=== PATIENT | female | born 2000 | race Caucasian/White ===

== ENCOUNTER 2024-12-12 13:48 | Outpatient (AMB) | payer BC, SELFPAY ==
--- NOTE | 2024-12-12 13:53 | PD.RESCLINIC ---
Vital Signs 12/12/24 14:02 Height 1.57 m Height Method Stated Weight 81.817 kg Weight Measurement Method Standing Scale BMI 33.0 BP 117/78 Blood Pressure Source Automatic Cuff Blood Pressure Location Right Upper Arm Position Sitting Respiration 17 Pulse 74 Pulse Source Monitor Temp 98.2 F Temp Source Temporal Artery Scan Pulse Oximetry (%) 97 Oxygen Delivery Method Room Air Allergies/Meds Allergies & Medications Allergies No Known Allergies Allergy (Verified 12/12/24 14:03) Medication Reconciliation famotidine 20 mg tablet 20 mg PO QDAY PRN acid reflux 2 weeks #14 tabs 12/12/24 [Rx] tranexamic acid 650 mg tablet 650 mg PO TID First five days of menstruation 5 days #15 tabs 12/12/24 [Rx] MA Intake Visit Data Collection New Patient or Established: New Patient (never been to [facility]) Seen by Clinical Staff ONLY (RN/MA): No Reason for Visit:: ESTABLISH CARE Pain Present Currently: No Pain scale:: 0 Pain Scale Used: Gomez-Geno/Numerical Child Day Care Teacher Required: No PCP or OBGYN visit in last 3 months: No Hx Now: No Date of Last Menstrual Period: 11/26/24 Do You Feel Safe at Home: Yes Authorities Contacted: N/A Smoking Status Smoking Status: Never smoker Immunization / Flu Flu Vaccine in the Last 12 Months: Yes Flu Vaccine Exclusion Criteria: Already Received Past Medical History Social History SMOKING STATUS: Smoking status: Never smoker HOUSING: Housing: [facility] Patient [facility] Questionaires PHQ-9 PHQ-2 Over the last 2 weeks, how often have you been bothered by any of the following problems? 1. Little interest or pleasure in doing things: not at all 2. Feeling down, depressed, or hopeless: not at all Total score: 0 PHQ-9 3. Trouble falling or staying asleep, or sleeping too much: Not at all 4. Feeling tired or having little energy: Not at all 5. Poor appetite or overeating: Not at all 6. Feeling bad about yourself - or that you are a failure or have let yourself or your family down: Not at all 7. Trouble concentrating on things, such as reading the newspaper or watching television: Not at all 8. Moving or speaking so slowly that other people could have noticed? - Or the opposite - being so fidgety or restless that you have been moving around a lot more than usual: not at all 9. Thoughts that you would be better off or of hurting yourself in some way: Not at all Total score: 0 If you checked off any problems, how difficult have these problems made it for you to do your work, take care of things at home, or get along with other people?: not difficult at all Source: Developed by Drs. Nathanael Shaikh, Angela Cohen, Papi Vigil and colleagues, with an educational noa from [employer]. Depression screen completed yes Social History Living Situation History Marital Status: Lives With: Family Housing: House Tobacco History Smoking Status: Never smoker Domestic Abuse History Do You Feel Safe at Home: Yes Review of Systems Report any current symptoms Only answer those that you have currently: Past Medical History Past Medical History Have you ever been diagnosed with any of the following: History of Present Illness HPI Narrative This patient is a 24-year-old female with no significant past medical history who is new to our [facility] clinic presented with chief complaint of irregular and heavy menstrual period from last 6 months. She reported that she had regular menstrual cycle in July 2024 lasting for 7 days soaking around 5 pads on heavy cycle days associated with dyspareunia and pelvic pain. She noticed her menstrual cycle became irregular in August lasting for 18 days and heaviest in the midcycle associated with worsening heaviness in pelvis and pain mainly in lower pelvis. She has been for last 6 years and they have been planning to conceive this year but her menstrual cycle got irregular. Of note, she reported that she had an in 2021 as they were not planning to conceive during that timeframe. Due to her irregular menstrual period they are only able to perform sexual intercourse once or twice a month since July 2024. Patient [facility] to get evaluated however they did basic lab work including CBC and thyroid functions which were normal and patient was only given iron medications with multivitamins. She stated that her menstrual cycle was heaviest in October and November lasting for 20 days. She did not seek any medical attention or take any medication during this timeframe. Her last menstrual period stopped on December 03, 2024. Since then, she has noticed some mild lower pelvic pain however denied dyspareunia. She endorsed some dizziness and lightheadedness. She has been having intentional weight loss with exercise and diet. She performs push-ups and treadmill at least 5 days a week. Patient denies any significant history of oral contraceptive intake, use of injection contraceptives or IUDs. She is currently not taking any medication. Denies dysuria or burning. Patient use pads only and denies usage of tampons. PMH: Nonsignificant PSH: Appendectomy in childhood Allergies: Allergic to dust SH: Denies smoking tobacco or marijuana. Drinks alcohol socially. No history of illicit drug use. FH: History of uterine cancer in aunt who . Her sister had 1 miscarriage. Patient was informed that she would need investigations including basic lab work CBC, CMP, iron panel with ferritin, B12, thyroid functions, beta-hCG, anti-m?llerian hormone, hormone test including FSH and LH along with transabdominal pelvic ultrasound to evaluate for uterine or ovarian pathology. Patient was given TIGHTENING MACHINE OPERATOR referral to Dr. Martinez for further evaluation along with lab work after 2 weeks per discussion with TIGHTENING MACHINE OPERATOR. Differentials include menometrorrhagia related to hormonal imbalance related to weight changes, endometriosis, fibroids, ovarian cyst, iron deficiency anemia, thyroid abnormalities Patient was given prescription for tranexamic acid 650 mg 3 times daily during first 5 days of menstrual cycle if menstrual cycle start within 2 weeks of visit with TIGHTENING MACHINE OPERATOR. She was also given prescription for famotidine 20 mg as needed for acid reflux. At this time, no OCP was prescribed until lab results are seen. Patient was advised to follow-up with TIGHTENING MACHINE OPERATOR within 2 weeks with lab results. Patient was agreeable to the plan. Follow-up in 2 weeks. Review of Systems Review of Systems Systems Reviewed: All systems reviewed, normal except as documented Objective/Exam Narrative Physical exam: GENERAL APPEARANCE: AxOx4, generally well-appearing female in no acute distress. HEENT: NC, AT. MMM. EOMI, clear conjunctiva, oropharynx clear. NECK: Supple without lymphadenopathy. No stiffness or restricted ROM. HEART: regular rate and regular rhythm, normal S1/S2, no m/r/g LUNGS: CTAB, moving air well. No crackles or wheezes are heard. ABDOMEN: Soft, Epigastric and lower pelvic tenderness, nondistended with good bowel sounds heard. BACK: No CVAT, no obvious deformity. EXTREMITIES: Without cyanosis, clubbing or edema. NEUROLOGICAL: Grossly nonfocal. Alert and oriented, moving all 4 extremities. CN not formally tested but appear grossly intact. Observed to ambulate with normal gait. Skin: Warm and dry without any rash. Assessment & Plan Diagnosis / Problem List (1) Menometrorrhagia: Status: Acute Assessment & Plan: #Menometrorrhagia Differentials include menometrorrhagia related to hormonal imbalance related to weight changes, endometriosis, fibroids, ovarian cyst, iron deficiency anemia, thyroid abnormalities ? Patient is new to our care presented with irregular and heavy menstrual blood for last 6 months. Menstrual cycle lasts 18 to 20 days heaviest in midcycle associated with dyspareunia and pain in pelvis. She is not taking any OCPs or any other medications. Endorsed lightheadedness and dizziness. Endorsed intentional weight loss with diet and exercise. No hirsutism reported. Patient is sexually active with her . Perform sexual intercourse once or twice a month. Intends to plan once menstrual cycle is regular. History of in 2021. Her last menstrual period was on December 03, 2024. Plan ? Prescription given for tranexamic acid 650 mg 3 times daily for first 5 days of menstrual cycle ? Basic lab including CBC, CMP, iron panel with ferritin, B12, A1c, thyroid function, beta-hCG, FSH, LH, anti-m?llerian hormone ? Imaging including transabdominal pelvic ultrasound to evaluate for uterine or ovarian pathology ? Referral given to TIGHTENING MACHINE OPERATOR for further evaluation after 2 weeks with lab results ? Famotidine 20 mg given for acid reflux as needed ? Follow-up in 2 weeks Patient was seen and discussed with attending physician, Dr.Wat[place] Dr. Svetlana MD, PGY 2 Orders: Orders Ambulatory Hemoglobin A1C Today N92.1 - Excessive and frequent menstruation with irregular cycle Thyroid Stimulating Hormone Today Vitamin B12 Today N92.1 - Excessive and frequent menstruation with irregular cycle Iron Panel Today N92.1 - Excessive and frequent menstruation with irregular cycle Urinalysis Today N92.1 - Excessive and frequent menstruation with irregular cycle CBC Today N92.1 - Excessive and frequent menstruation with irregular cycle Comprehensive Metabolic Panel Today N92.1 - Excessive and frequent menstruation with irregular cycle HCG Qualitative,Urine Today N92.1 - Excessive and frequent menstruation with irregular cycle US pelvic complete Today N92.1 - Excessive and frequent menstruation with irregular cycle Follicle Stimulating Hormone Today N92.1 - Excessive and frequent menstruation with irregular cycle Luteinizing Hormone* Today N92.1 - Excessive and frequent menstruation with irregular cycle Ferritin Today N92.1 - Excessive and frequent menstruation with irregular cycle Referrals TIGHTENING MACHINE OPERATOR N92.1 - Excessive and frequent menstruation with irregular cycle Office Procedures [facility] Level of Care Nursing/Assessment Patient Status: Initial/New Patient Nursing Assessment/Reassessment: Medication Reconciliation, Update PMH in EMR and Vital Signs Coordination of Care: Complex Care and Chronic Disease 1-5, Consent,records obtained, informed consent, Education Simp Pt/Fam and Staff clarify orders New Patient Charge New Patient Point Assignment: [id number] New Patient Point Charge: IT SOFTWARE DEVELOPER Level 3 ([id number])
[2024-12-12 14:02] VITALS: BP 117/78; PULSE 74; RESP 17; TEMP 36.8; O2SAT 97; BMI 33.0
== END 2024-12-12 14:55 | disposition home or self-care (01) ==
LOC: HODAHC 13:48
PROVIDERS: PCP Student in an Organized Health Care Education/Training Program; Referring Provider Student in an Organized Health Care Education/Training Program; Supervising Provider Internal Medicine; Visit Provider Student in an Organized Health Care Education/Training Program
DX: N92.1 Excessive and frequent menstruation with irregular cycle (principal)
CPT/HCPCS: 99203; G0463

== ENCOUNTER 2024-12-26 13:13 | Outpatient (AMB) | payer BC, SELFPAY ==
[2024-12-26 13:44] VITALS: BP 137/85; PULSE 71; RESP 18; TEMP 36.2; O2SAT 98; BMI 33.2
--- NOTE | 2024-12-26 13:44 | GYNCLNT_ITS ---
Vital Signs 12/26/24 13:44 Height 1.57 m Height Method Stated Weight 81.817 kg Weight Measurement Method Standing Scale BMI 33.2 BP 137/85 H Blood Pressure Source Automatic Cuff Blood Pressure Location Left Upper Arm Position Sitting Respiration 18 Pulse 71 Pulse Source Monitor Temp 97.2 F Temp Source Oral Pulse Oximetry (%) 98 Oxygen Delivery Method Room Air Allergies/Home Meds Allergies & Medications Allergies No Known Allergies Allergy (Verified 12/26/24 13:50) Medication Reconciliation tranexamic acid 650 mg tablet 650 mg PO TID First five days of menstruation 5 days #15 tabs 12/12/24 [Rx Confirmed 12/26/24] medroxyprogesterone 10 mg tablet (Provera) 10 mg PO QDAY 24 days #24 tabs 12/26/24 [Rx] Intake Visit Data Collection New Patient or Established: Established Patient (seen at [facility] within 3 years) Reason for Visit:: REFERRAL FROM [facility] Seen by Clinical Staff ONLY (RN/MA): No Electric Motor Repairman Required: No Do You Feel Safe at Home: Yes Authorities Contacted: N/A PCP or OBGYN visit in last 3 months: Yes Date of Last PCP or OBGYN visit: 12/12/24 Hx Now: Yes Are you currently on any form of Control: No Pain Present Currently: No Pain Scale Used: Gomez-Lora/Numerical Pain scale:: 0 Smoking Status Smoking Status: Never smoker Event Host history Event Host History Menstrual regularity: irregular Flow: heavy Monthly: Yes How many days does period last: 5 Age at menarche: 10 Menopausal: No Currently sexually active: Yes Questionnaires Covid-19 Vaccine Questionnaire Has patient been vacinated for Covid-19 Have you been vacinated for Covid-19: Yes PHQ-9 PHQ-2 Over the last 2 weeks, how often have you been bothered by any of the following problems? 1. Little interest or pleasure in doing things: not at all 2. Feeling down, depressed, or hopeless: not at all Total score: 0 PHQ-9 3. Trouble falling or staying asleep, or sleeping too much: Not at all 4. Feeling tired or having little energy: Not at all 5. Poor appetite or overeating: Not at all 6. Feeling bad about yourself - or that you are a failure or have let yourself or your family down: Not at all 7. Trouble concentrating on things, such as reading the newspaper or watching television: Not at all 8. Moving or speaking so slowly that other people could have noticed? - Or the opposite - being so fidgety or restless that you have been moving around a lot more than usual: not at all 9. Thoughts that you would be better off or of hurting yourself in some way: Not at all Total score: 0 If you checked off any problems, how difficult have these problems made it for you to do your work, take care of things at home, or get along with other people?: not difficult at all Source: Developed by Drs. Nathanael Shaikh, Angela Cohen, Papi Vigil and colleagues, with an educational noa from [employer] Depression screen completed yes Social History Living Situation History Lives With: Family Housing: House Tobacco History Smoking Status: Never smoker Second Hand Smoke Exposure: No Alcohol History Alcohol Intake: Never Domestic Abuse History Do You Feel Safe at Home: Yes History of Present Illness HPI Narrative Janine Henry is a 24-year-old female presenting on referral from the [facility] Medicine [facility] for menorrhagia. She reports a 6-month history of heavy periods, which began in August 2024. Prior to July 2024, the patient had regular menstrual cycles lasting about 7 days, using approximately 5 pads on heavy days. However, starting in August, her periods became progressively heavier, with one episode lasting about 18 days. She is currently experiencing another heavy period, which began yesterday. The patient also complains of dyspareunia and pelvic pain. She describes a feeling of heaviness in her uterus. Janine has been for 6 years and is trying to conceive. She reports a miscarriage in 2021. Due to her irregular cycles, she is currently unable to track her ovulation. The patient and her had planned to start trying for this year, but her menstrual irregularities have interfered with their plans. The patient was prescribed tranexamic acid by a resident doctor to manage her heavy bleeding. She took one dose last night but reports that it has not been effective in stopping or significantly reducing her menstrual flow. She is also taking Provera for menstrual cycle regulation. Obstetric History: - GPAL: A1 L0 - history: Miscarriage in 2021, no further details provided ROS: Genitourinary: Positive for heavy menstrual bleeding, dyspareunia, and pelvic pain. Review of Systems Review of Systems Systems Reviewed: All systems reviewed, normal except as documented Exam General General Appearance: alert, in no apparent distress and healthy appearing Head Head exam: atraumatic Neck Neck exam: Present normal inspection and trachea midline Chest Chest inspection: Present normal inspection and symmetric chest wall rise External exam: Present normal external exam; Absent tenderness Neuro Neurological exam: Present oriented X3 Psych Psychiatric exam: Present normal affect and normal mood Office Procedures OB Clinic LOC & Office Proc's Nursing/Assessment Patient Status: Established Patient OB Clinic Nursing Assessment: Medication Reconciliation, Update PMH in EMR and Vital Signs OB Clinic Coordination of Care: Education Complex Pt/Fam, Consent,records obtained, informed consent, Lab and Imaging orders, Results/Orders obtained and Staff clarify orders Established Patient Charge Established Patient Point Assignment: 85 Established Patient Point Charge: EP Level 3 (80-115) Assessment & Plan Diagnosis / Problem List (1) Abnormal uterine and vaginal bleeding, unspecified: Status: Acute (2) Female infertility, unspecified: Status: Acute Plan Menorrhagia: - Regular menstrual cycles until July 2024, lasting about 7 days with 5 pads on heavy days. - From August 2024, cycles became progressively heavier, with an episode lasting 18 days. - Recent labs, including thyroid function tests and Anti-Mullerian Hormone (AMH), within normal limits. - Presentation suggests a functional problem rather than structural issue. Plan: - Discontinue tranexamic acid - Start Provera (medroxyprogesterone acetate) for menstrual cycle regulation - 24-day course - Repeat for 2 months - Educate patient: - Bleeding should stop within 2 days of starting Provera - Period expected after completing 24-day course - Order pelvic ultrasound to rule out structural abnormalities - Follow-up in 1 month to assess response to treatment - Instruct patient to call and return sooner if bleeding occurs while on Provera Infertility: - Trying to conceive for 6 years - History of miscarriage in 2021 - Recent irregular cycles making it difficult to track ovulation - AMH levels normal, indicating adequate ovarian reserve Plan: - After 2 months of menstrual cycle regulation with Provera: - Initiate ovulation monitoring using [id number] test kits - Provide patient with a calendar indicating when to start monitoring - If ovulating: No further treatment needed - If not ovulating: Consider treatment with Clomid (clomiphene citrate)
== END 2024-12-26 14:27 | disposition home or self-care (01) ==
LOC: HODSOBC 13:13
PROVIDERS: PCP Student in an Organized Health Care Education/Training Program; Referring Provider Student in an Organized Health Care Education/Training Program; Supervising Provider Obstetrics & Gynecology; Visit Provider Obstetrics & Gynecology
DX: N93.9 Abnormal uterine and vaginal bleeding, unspecified (principal); N97.9 Female infertility, unspecified
CPT/HCPCS: 99213; G0463

== ENCOUNTER → 2025-01-26 | Outpatient (CLI) | payer BC, SELFPAY ==
--- NOTE | 2025-01-26 10:45 | XR_ITS ---
Examination: Pelvic ultrasound, transabdominal, complete Technique: Transabdominal ultrasound of the pelvis performed using grayscale imaging Date and time of exam: 01/26/2025 1033 hours INDICATIONS: Irregular menses 7 months FINDINGS: Uterus 8.0 cm endometrial stripe 0.7 cm No uterine mass or intrauterine gestation Right ovary 4.1 cm arterial flow, 3.0 x 1.5 x 2.3 cm cyst with internal echoes Left ovary 2.9 cm arterial flow Attention impression: attention: Right ovarian probable hemorrhagic cyst 3.0 x 1.5 x 2.3 cm, recommend 3-6 month follow-up pelvic sonography
== END | disposition home or self-care (01) ==
PROVIDERS: PCP Student in an Organized Health Care Education/Training Program; Referring Provider Student in an Organized Health Care Education/Training Program; Visit Provider Student in an Organized Health Care Education/Training Program
DX: N83.202 Unspecified ovarian cyst, left side (principal)
CPT/HCPCS: 76856

== ENCOUNTER 2025-02-06 15:12 | Outpatient (AMB) | payer BC, SELFPAY ==
[2025-02-06 15:28] VITALS: BP 115/73; PULSE 73; RESP 17; TEMP 36.7; O2SAT 98; BMI 33.0
--- NOTE | 2025-02-06 15:28 | GYNCLNT_ITS ---
Vital Signs 02/06/25 15:28 Height 1.57 m Height Method Stated Weight 81.42 kg Weight Measurement Method Standing Scale BMI 33.0 BP 115/73 Blood Pressure Source Automatic Cuff Blood Pressure Location Right Upper Arm Position Sitting Respiration 17 Pulse 73 Pulse Source Monitor Temp 98.1 F Temp Source Temporal Artery Scan Pulse Oximetry (%) 98 Oxygen Delivery Method Room Air Allergies/Home Meds Allergies & Medications Allergies No Known Allergies Allergy (Verified 02/06/25 15:32) Intake Visit Data Collection New Patient or Established: Established Patient (seen at [facility] within 3 years) Reason for Visit:: US RESULTS/FOLLOW UP Seen by Clinical Staff ONLY (RN/MA): No Distillery Miller Helper Required: No Do You Feel Safe at Home: Yes Authorities Contacted: N/A PCP or OBGYN visit in last 3 months: Yes Hx Now: Yes Are you currently on any form of Control: No Last menstrual period: 01/21/25 Pain Present Currently: No Pain Scale Used: Gomez-Lora/Numerical Pain scale:: 0 Smoking Status Smoking Status: Never smoker Citizenship Instructor history Citizenship Instructor History Menstrual regularity: irregular Flow: heavy Monthly: Yes How many days does period last: 5 Age at menarche: 10 Currently sexually active: Yes Questionnaires Covid-19 Vaccine Questionnaire Has patient been vacinated for Covid-19 Have you been vacinated for Covid-19: No PHQ-9 PHQ-2 Over the last 2 weeks, how often have you been bothered by any of the following problems? 1. Little interest or pleasure in doing things: not at all 2. Feeling down, depressed, or hopeless: not at all Total score: 0 PHQ-9 3. Trouble falling or staying asleep, or sleeping too much: Not at all 4. Feeling tired or having little energy: Not at all 5. Poor appetite or overeating: Not at all 6. Feeling bad about yourself - or that you are a failure or have let yourself or your family down: Not at all 7. Trouble concentrating on things, such as reading the newspaper or watching television: Not at all 8. Moving or speaking so slowly that other people could have noticed? - Or the opposite - being so fidgety or restless that you have been moving around a lot more than usual: not at all 9. Thoughts that you would be better off or of hurting yourself in some way: Not at all Total score: 0 If you checked off any problems, how difficult have these problems made it for you to do your work, take care of things at home, or get along with other people?: not difficult at all Source: Developed by Drs. Nathanael Shaikh, Angela Cohen, Papi Vigil and colleagues, with an educational noa from [employer]. Depression screen completed yes Social History Living Situation History Marital Status: Lives With: Family Housing: House Tobacco History Smoking Status: Never smoker Second Hand Smoke Exposure: No Alcohol History Alcohol Intake: Never Domestic Abuse History Do You Feel Safe at Home: Yes History of Present Illness HPI Narrative Patient reports completing one round of Provera for 24 days as prescribed for cycle regulation. She experienced a normal 5-day menstrual period following the medication. She believes she is currently ovulating, stating I feel like I'm ovulating right now. I'm feeling it. Patient expresses hope that the treatment is working effectively and mentions her ongoing desire to become . She notes that she did not have any refills for the medication. The patient reports no adverse effects or concerns related to the treatment. She is a female patient presenting for a 6-week follow-up after being prescribed Provera for cycle regulation. The patient demonstrates good adherence to her prescribed treatment regimen, having completed the full course of Provera as directed. She has been feeling good since her last visit. The patient is attempting to conceive. She was advised to stay away from alcohol. Exam General General Appearance: alert, in no apparent distress and healthy appearing Head Head exam: atraumatic Neck Neck exam: Present normal inspection and trachea midline Chest Chest inspection: Present normal inspection and symmetric chest wall rise External exam: Present normal external exam; Absent tenderness Neuro Neurological exam: Present oriented X3 Psych Psychiatric exam: Present normal affect and normal mood Office Procedures OB Clinic LOC & Office Proc's Nursing/Assessment Patient Status: Established Patient OB Clinic Nursing Assessment: Medication Reconciliation, Update PMH in EMR and Vital Signs OB Clinic Coordination of Care: Complex Care and Chronic Disease 1-5, Consent,records obtained, informed consent, Education Simp Pt/Fam, Results /Orders obtained and Staff clarify orders Established Patient Charge Established Patient Point Assignment: 90 Established Patient Point Charge: EP Level 3 (80-115) Assessment & Plan Diagnosis / Problem List (1) Female infertility, unspecified: Status: Acute (2) Abnormal uterine and vaginal bleeding, unspecified: Status: Acute (3) Menometrorrhagia: Status: Acute Plan Menstrual Cycle Irregularity: - Patient completed one 24-day course of Provera for cycle regulation. - Normal 5-day menstrual period following medication course. - Patient believes she may be ovulating based on symptoms. - Initial goal of regulating menstrual cycle achieved with Provera treatment. Plan: - Discontinue Provera as initial course has completed and achieved desired effect. - Instruct patient to track menstrual cycles using provided calendar template. - Recommend use of ovulation test kits to identify fertility window. - Educate on optimal timing for conception: ? Ovulation typically occurs around cycle days 12-16. ? Fertility window is approximately 24 hours before and after ovulation. - Advise timed intercourse during fertility window. - [employer] Teacher on lifestyle modifications: ? Avoid alcohol consumption. ? Discontinue unnecessary medications. - Follow up in 3 months to reassess cycle regularity and conception efforts.
== END 2025-02-06 15:48 | disposition home or self-care (01) ==
LOC: HODSOBC 15:12
PROVIDERS: Supervising Provider Obstetrics & Gynecology; Visit Provider Obstetrics & Gynecology
DX: N97.9 Female infertility, unspecified (principal); N93.9 Abnormal uterine and vaginal bleeding, unspecified; N92.1 Excessive and frequent menstruation with irregular cycle
CPT/HCPCS: 99213; G0463